=== PATIENT | male | born 1950 | race Caucasian/White ===

== ENCOUNTER 2016-12-08 11:14 | Inpatient (IN) | payer MEDICARE, MEDICAID ==
--- NOTE | 2016-12-08 12:01 | EDPRACDOC ---
- General Information Stated Complaint: WEAKNESS Time Seen by Provider: 12/08/16 11:48 Information Source: Patient Home Medications: Home Medications Clonazepam 0.5 mg PO BID 11/03/15 Duloxetine HCl [Cymbalta] 60 [place] 89911/03/15 Finasteride [Proscar] 5 mg PO 79911/03/15 Lamotrigine 200 mg PO BID 11/03/15 PEG-Electrolytes (Miralax) [Miralax] 17 gm [place] 89911/03/15 Quetiapine Fumarate [Seroquel] 50 mg PO 89911/03/15 Tamsulosin HCl [Flomax] 0.4 mg PO 209911/03/15 Acetaminophen [Tylenol] 650 mg PO Q8H PRN 12/08/16 Calcium Carbonate [Tums] 500 mg PO Q4H PRN 12/08/16 Calcium Carbonate/Vitamin D3 [Calcium 600 + D3 Softgel] 1 each PO 0900 12/08/16 Carbidopa/Levodopa [Carbidopa-Levodopa 25-250 Tab] 1 each PO TID 12/08/16 Divalproex Sodium [Depakote] 375 mg PO .[id number] 12/08/16 Docusate Sodium [Colace] 10 ml PO BID 12/08/16 Famotidine 10 mg PO 209912/08/16 Mirtazapine 7.5 mg PO 209912/08/16 Quetiapine Fumarate [Seroquel] 75 mg PO 209912/08/16 Sennosides [Senna] 2 tabs PO 1700 12/08/16 Allergies/Adverse Reactions: Allergies Allergy/AdvReac Type Severity Reaction Status Date / Time No Known Allergies Allergy Verified 12/08/16 12:10 - History of Present Illness HPI: PT PRESENTS TO ER WITH REPORT OF TACHYCARDIA. HE WAS IN SPU FOR PLATELET TRANSFUSION WHICH HAD NOT BEGUN. HEART RATE WAS IN 150'S WHICH HAS IMPROVED WITH REST. ED Past Medical History - History Reviewed Yes Nurses notes reviewed and agree except as marked - Patient Medical History Neurological History: Reports: Dementia (WITH AGITATION) Cardiac History: Reports: Hypertension Respiratory History: Reports: COPD - Social Medical History Smoking Status: Current status unknown [facility] In: [facility] EDM Review of Systems - Review of Systems ROS Unobtainable: Yes Hx Limited due to age/level of understanding of patient Respiratory: negative: Cough, Shortness of Breath Cardiovascular: negative: Chest Pain Gastrointestinal: negative: Pain - Physical Exam Constitutional: Alert Oriented to: Person, Place Last recorded Vital Signs: Oxygen Pulse Oxygen Saturation O2 Device Oxygen Flow Rate Fraction of Inspired Oxygen ( FIO2) - HEENT Head: negative: Deformity, Laceration Eye Exam: negative: Conjunctival Injection, Pale Conjunctiva Oropharynx: negative: Membranes Dry Nose: negative: Congestion, Discharge Neck: negative: Limited ROM - Respiratory/Cardiovascular Respiratory: Normal - CTA. negative: Accessory Muscle Use, Diminished, Tachypnea Cardiovascular: Tachycardia. negative: Bradycardia, Irregular - GI Auscultation: Normal Palpation: Normal Tenderness: Non tender - Musculoskeletal Extremities: Radial Pulse (PALPABLE) - Integumentary Skin: Warm, Dry - Neurologic Memory Impaired: Short-term, Long-term Motor Function: Normal Mood Description: Anxious, Appropriate Thought: Coherent - Results 12/08/16 12:45 12/08/16 12:45 Decision Time to Discharge: 14:52 - Departure Yes I personally saw and evaluated the patient. Disposition: Admit IP To This Hospital Condition: Stable Final Diagnosis: Thrombocytopenia, Lactic acidosis UTI (urinary tract infection) Qualifiers: Urinary tract infection type: site unspecified Instructions: Urinary Tract Infection in Men (ED), Dysuria Referrals: Vania Sandoval MD [Primary Care Provider] - One Week Prescriptions: No Action Tamsulosin HCl [Flomax] 0.4 mg PO 2100 Lamotrigine 200 mg PO BID Clonazepam 0.5 mg PO BID Quetiapine Fumarate [Seroquel] 50 mg PO 0900 PEG-Electrolytes (Miralax) [Miralax] 17 gm PO 0900 Finasteride [Proscar] 5 mg PO 0800 Duloxetine HCl [Cymbalta] 60 mg PO 0900 Carbidopa/Levodopa [Carbidopa-Levodopa 25-250 Tab] 1 each PO TID Calcium Carbonate [Tums] 500 mg PO Q4H PRN PRN Reason: Heartburn Or Indigestion Acetaminophen [Tylenol] 650 mg PO Q8H PRN PRN Reason: Pain Docusate Sodium [Colace] 10 ml PO BID Divalproex Sodium [Depakote] 375 mg PO .[id number] Sennosides [Senna] 2 tabs PO 1700 Quetiapine Fumarate [Seroquel] 75 mg PO 2100 Mirtazapine 7.5 mg PO 2100 Famotidine 10 mg PO 2100 Calcium Carbonate/Vitamin D3 [Calcium 600 + D3 Softgel] 1 each PO 0900 Decision to Admit Time: 14:50 Decision to admit date: 12/08/16 Decision to admit: from ED
[2016-12-08 12:24] LABS: LEUKOCYTES/URINE 2+ (NEGATIVE); NITRITE/URINE NEG (NEGATIVE); RBC/URINE TNTC (0-2); URINE OCCULT BLOOD 1+ (NEG/TRACE); WBC/URINE TNTC (0-2)
[2016-12-08 12:25] LABS: PARTIAL THROMB. TIME 26.3 SEC (22-35); PT-INR 1.1
--- NOTE | 2016-12-08 12:40 | DIRPT ---
CLINICAL DATA: Sepsis EXAM: PORTABLE CHEST 1 VIEW COMPARISON: None. FINDINGS: Heart size is upper normal, likely accentuated to some degree by the semi-upright portable technique. Study is also somewhat hypoinspiratory with crowding of the perihilar and bibasilar bronchovascular markings. Given the low lung volumes, lungs appear clear. No evidence of pneumonia seen. No pleural effusion seen. Left chest wall pacemaker/AICD in place. Patient is status post left shoulder arthroplasty. Degenerative changes noted at the right shoulder, moderate to severe in degree. Osseous and soft tissue structures about the chest are otherwise unremarkable. IMPRESSION: Hypoinspiratory exam. No evidence of acute cardiopulmonary abnormality seen. Electronically Signed By: Benito White M.D. On: 12/08/2016 12:37
[2016-12-08] MEDS ORDERED: NS 1,000 ML IV ONE (12:49)
[2016-12-08 13:14] LABS: MPV 8.5 fL (7.4-10.4)
[2016-12-08] MEDS ORDERED: CEFTRIAXONE 1 GM in D5W 100 ML IV ONE (13:14)
[2016-12-08 13:25] LABS: BLOOD UREA NITROGEN 23 MG/DL (9-20); CALCIUM 9.3 MG/DL (8.4-10.2); CALCULATED OSMOLALITY 280 MOs/Kg (270-290); CHLORIDE 102 mEq/L (98-107); CPK TOTAL WITH POSSIBLE MB 93 IU/L (55-170); GLUCOSE 81 mg/dL (70-99); SODIUM LEVEL 144 mEq/L (137-146); TOTAL PROTEIN 7.3 G/DL (6.3-8.2)
[2016-12-08 13:46] LABS: SEG NEUTROPHIL 66 % (45-76); TOTAL CELL COUNT 100
--- NOTE | 2016-12-08 15:39 | HISTPHYS ---
- Chief Complaint Tachycardia - History of Present Illness Mr. Caldwell is a 66-year-old correction patient with a history of dementia with psychotic features who was sent to the emergency room from special procedures with tachycardia. He was in special procedures to receive a transfusion for a platelet count of 16 when he was noted to be significantly tachycardic. His heart rate was in the 150s. He was referred to the emergency room for further evaluation and management. Clinically he appears septic with an elevated lactic acid level and a urinary tract infection. Currently he is afebrile appears acutely ill. He will be admitted to the hospital for further evaluation and management. - Medical History Cardiac History: Reports: Hypertension Respiratory History: Reports: COPD GI/ History: Reports: No Significant History Musculoskeletal History: Reports: No Significant History Systemic History: Reports: No Significant History Neurological History: Reports: Dementia (WITH AGITATION) - Medictions/Allergies Allergies No Known Allergies Allergy (Verified 12/08/16 12:10) Current Medication List: Reviewed Home Medications Clonazepam 0.5 mg PO BID 11/03/15 Duloxetine HCl [Cymbalta] 60 mg PO 89911/03/15 Finasteride [Proscar] 5 mg PO 79911/03/15 Lamotrigine 200 mg PO BID 11/03/15 PEG-Electrolytes (Miralax) [Miralax] 17 gm PO 89911/03/15 Quetiapine Fumarate [Seroquel] 50 mg PO 89911/03/15 Tamsulosin HCl [Flomax] 0.4 mg PO 209911/03/15 Acetaminophen [Tylenol] 650 mg PO Q8H PRN 12/08/16 Calcium Carbonate [Tums] 500 mg PO Q4H PRN 12/08/16 Calcium Carbonate/Vitamin D3 [Calcium 600 + D3 Softgel] 1 each PO 0900 12/08/16 Carbidopa/Levodopa [Carbidopa-Levodopa 25-250 Tab] 1 each PO TID 12/08/16 Divalproex Sodium [Depakote] 375 mg PO .[id number] 12/08/16 Docusate Sodium [Colace] 10 ml PO BID 12/08/16 Famotidine 10 mg PO 209912/08/16 Mirtazapine 7.5 mg PO 209912/08/16 Quetiapine Fumarate [Seroquel] 75 mg PO 209912/08/16 Sennosides [Senna] 2 tabs PO 1700 12/08/16 - Family History Reports: Other (Unknown) - Social History Travel Outside of [place] in the Last 3 Months?: No Lives: in [facility] Smoking Status: Current status unknown Social History: Denies: Alcohol Use - Review of Systems Yes Review of systems cannot be obtained due to the patient's medical condition (Dementia and confusion) - Physical Exam Constitutional: Alert, Distress. negative: Well appearing (Chronically ill- appearing) Oriented to: Person Exam: Last Vital Signs Temp 98.4 F 12/08/16 12:06 Pulse 112 12/08/16 13:05 Resp 20 12/08/16 13:05 BP 137/66 12/08/16 13:05 Pulse Ox 94 12/08/16 13:05 Intake & Output 12/07/16 12/08/16 12/08/16 23:59 07:59 15:59 Patient's weight 90.718 kg - HEENT Head: Normal. negative: Deformity, Laceration Eye: Normal. negative: Conjunctival Injection, Pale Conjunctiva Oropharynx: Normal. negative: Membranes Dry Nose: negative: Congestion, Discharge - Respiratory/Cardiovascular Respiratory: Normal - CTA. negative: Accessory Muscle Use, Diminished, Tachypnea Cardiovascular: Tachycardia, Systolic murmur - GI Auscultation: Normal Palpation: Normal Tenderness: Non tender - Musculoskeletal Back: Normal. negative: Abrasion Extremities: Normal, Radial Pulse (PALPABLE). negative: Calf Tenderness, Edema , Pedal Edema - Integumentary Skin: Warm, Dry Lymphatics: Normal. negative: Adenopathy - Neurologic Memory Impaired: Short-term, Long-term Motor Function: Normal Cranial Nerve: Normal Cerebellar: Normal Mood Description: Anxious, Appropriate Thought: Coherent Perception: Normal - Focused CV Perfusion Exam Vital Signs: Last Vital Signs Temp 98.4 F 12/08/16 12:06 Pulse 112 12/08/16 13:05 Resp 20 12/08/16 13:05 BP 137/66 12/08/16 13:05 Pulse Ox 94 12/08/16 13:05 - Lab Results Laboratory Results - last 24 hr 12/08/16 12/08/16 12/08/16 11:55 11:55 11:58 WBC RBC Hgb Hct MCV MCH MCHC RDW Plt Count MPV Neut % (Auto) Lymph % (Auto) [place] % (Auto) Eos % (Auto) Baso % (Auto) Absolute Neuts (auto) Absolute Lymphs (auto) Seg Neuts % (Manual) Band Neutrophils % Lymphocytes % (Manual) Monocytes % (Manual) Absolute Neutrophils Absolute Lymphocytes Platelet Estimate RBC Morphology PT 10.9 INR 1.1 APTT 26.3 Sodium Potassium Chloride Carbon Dioxide Anion Gap BUN Creatinine Estimated GFR (MDRD) Glucose Calculated Osmolality Lactic Acid 3.7 H Calcium Total Bilirubin AST ALT Alkaline Phosphatase Creatine Kinase Troponin I Total Protein Albumin Lipase Urine Color Yellow Urine Clarity Cldy Urine pH 6.0 Ur Specific [place] 1.010 Urine Protein 2+ H Urine Glucose (UA) Neg Urine Ketones Neg Urine Occult Blood 1+ H Urine Nitrite Neg Urine Bilirubin Neg Urine Urobilinogen <2.0 Ur Leukocyte Esterase 2+ H Urine RBC Tntc H Urine WBC Tntc H Urine WBC Clumps Present H Ur Epithelial Cells 4+ Urine Bacteria 4+ H 12/08/16 12/08/16 12:45 12:45 WBC 6.6 RBC 5.45 Hgb 16.3 Hct 48.6 MCV 89 MCH 29.9 MCHC 33.6 RDW 15.2 H Plt Count 89 L MPV 8.5 Neut % (Auto) Cancelled Lymph % (Auto) Cancelled [place] % (Auto) Cancelled Eos % (Auto) Cancelled Baso % (Auto) Cancelled Absolute Neuts (auto) Cancelled Absolute Lymphs (auto) Cancelled Seg Neuts % (Manual) 66 Band Neutrophils % 2 Lymphocytes % (Manual) 24 Monocytes % (Manual) 8 Absolute Neutrophils 4.49 Absolute Lymphocytes 1.58 Platelet Estimate Plt clumps present RBC Morphology Norm PT INR APTT Sodium 144 Potassium 4.3 Chloride 102 Carbon Dioxide 27 Anion Gap 19 H BUN 23 H Creatinine 1.40 H Estimated GFR (MDRD) 51 L Glucose 81 Calculated Osmolality 280 Lactic Acid Calcium 9.3 Total Bilirubin 0.6 AST 27 ALT 18 L Alkaline Phosphatase 77 Creatine Kinase 93 Troponin I 0.02 Total Protein 7.3 Albumin 4.2 Lipase 57 Urine Color Urine Clarity Urine pH Ur Specific [place] Urine Protein Urine Glucose (UA) Urine Ketones Urine Occult Blood Urine Nitrite Urine Bilirubin Urine Urobilinogen Ur Leukocyte Esterase Urine RBC Urine WBC Urine WBC Clumps Ur Epithelial Cells Urine Bacteria - Assessment (1) Sepsis A41.9 - SEPSIS, UNSPECIFIED ORGANISM Acute Present on Admission: Yes Qualifiers: Sepsis type: sepsis due to unspecified organism Qualified Code(s): A41.9 - Sepsis, unspecified organism Tachycardic with urinary tract infection and elevated lactic acid level. Admit to the hospital. IV fluids, IV antibiotics and supportive care. Follow lactic acid level. (2) Dementia F03.90 - UNSPECIFIED DEMENTIA WITHOUT BEHAVIORAL DISTURBANCE Acute Present on Admission: Yes Qualifiers: Dementia type: unspecified type Dementia behavioral disturbance: with behavioral disturbance Qualified Code(s): F03.91 - Unspecified dementia with behavioral disturbance Severe. Continue antipsychotics monitor. (3) UTI (urinary tract infection) N39.0 - URINARY TRACT INFECTION, SITE NOT SPECIFIED Acute Present on Admission: Yes Qualifiers: Urinary tract infection type: site unspecified Hematuria presence: without hematuria Qualified Code(s): N39.0 - Urinary tract infection, site not specified IV Rocephin and monitor. Adjust therapy pending culture results (4) Lactic acidosis E87.2 - ACIDOSIS Acute Present on Admission: Yes IV fluids and monitor. Treat infection. (5) Thrombocytopenia D69.6 - THROMBOCYTOPENIA, UNSPECIFIED Acute Present on Admission: Yes Significantly better at 89,000. Attempting to obtain records. Unclear what caused significant thrombocytopenia. Hold on any transfusion
[2016-12-08] MEDS ORDERED: ZOLPIDEM TARTRATE 5 MG TAB PO PRN (15:46)
[2016-12-08] MEDS ORDERED: Docusate Sodium 100 MG CAP PO PRN (15:46)
[2016-12-08] MEDS ORDERED: ACETAMINOPHEN 650 MG SUPP PR PRN (15:46)
[2016-12-08] MEDS ORDERED: MAGNESIUM HYDROXIDE 30 ML BOTTLE PO PRN (15:46)
[2016-12-08] MEDS ORDERED: GUAIFENESIN 200 MG/10 ML UDC PO PRN (15:46)
[2016-12-08] MEDS ORDERED: ACETAMINOPHEN 325 MG/TAB TABLET PO PRN (15:46)
[2016-12-08] MEDS ORDERED: BENZONATATE 100 MG PERLES PO PRN (15:46)
[2016-12-08] MEDS ORDERED: ONDANSETRON HCL 4 MG/2 ML VIAL IV PRN (15:46)
[2016-12-08] MEDS ORDERED: Albuterol/Ipratropium Neb 3 ML NEB NEB PRN (15:51)
[2016-12-08] MEDS ORDERED: CALCIUM CARBONATE 500 MG TAB PO PRN (15:56)
[2016-12-08] MEDS ORDERED: DIVALPROEX SODIUM 375 MG PO SCH (16:00)
[2016-12-08] MEDS: NS 1,000 ML IV SCH (17:38)
[2016-12-08] MEDS: SENNA CONCENTRATE TAB PO SCH (17:46)
[2016-12-08] MEDS ORDERED: Vaccine Screening Complete SCH (18:00)
[2016-12-08] MEDS ORDERED: ENOXAPARIN 40 MG/0.4 ML PFS SQ SCH (18:00)
[2016-12-08] MEDS: Docusate Sodium 100 MG CAP PO SCH (20:40)
[2016-12-08] MEDS: DIVALPROEX SODIUM 125 MG CAP PO SCH (20:40)
[2016-12-08] MEDS: LAMOTRIGINE 100 MG TAB PO SCH (20:41)
[2016-12-08] MEDS: QUETIAPINE FUMARATE 25 MG TAB PO SCH (20:41)
[2016-12-08] MEDS: MIRTAZAPINE 15 MG TAB PO SCH (20:41)
[2016-12-08] MEDS: TAMSULOSIN HCL 0.4 MG CAP PO SCH (20:41)
[2016-12-08] MEDS: CARBIDOPA LEVODOPA PO SCH (20:42)
[2016-12-08] MEDS: FAMOTIDINE 20 MG TAB PO SCH (20:42)
[2016-12-08] MEDS ORDERED: LAMOTRIGINE 200 MG PO SCH (21:00)
[2016-12-08] MEDS ORDERED: MIRTAZAPINE 7.5 MG PO SCH (21:00)
[2016-12-08] MEDS ORDERED: DOCUSATE SODIUM PO SCH (21:00)
[2016-12-08] MEDS ORDERED: FAMOTIDINE 10 MG PO SCH (21:00)
[2016-12-09] MEDS: NS 1,000 ML IV SCH ×3 (01:47→20:42)
[2016-12-09] MEDS: CARBIDOPA LEVODOPA PO SCH ×3 (04:32→20:59)
[2016-12-09 07:45] LABS: MPV 8.8 fL (7.4-10.4)
[2016-12-09] MEDS ORDERED: FLU VACCINE (Afluria) 0.5 ML DOSE IM ONE (08:00)
[2016-12-09 08:02] LABS: BLOOD UREA NITROGEN 16 MG/DL (9-20); CALCIUM 8.4 MG/DL (8.4-10.2); CALCULATED OSMOLALITY 275 MOs/Kg (270-290); CHLORIDE 108 mEq/L (98-107); GLUCOSE 83 mg/dL (70-99); SODIUM LEVEL 143 mEq/L (137-146)
[2016-12-09] MEDS: FINASTERIDE 5 MG TAB PO SCH (08:21)
[2016-12-09] MEDS: Docusate Sodium 100 MG CAP PO SCH ×2 (08:21→20:57)
[2016-12-09] MEDS: DULOXETINE 60 MG CAPSULE PO SCH (08:22)
[2016-12-09] MEDS: DIVALPROEX SODIUM 125 MG CAP PO SCH ×2 (08:22→20:57)
[2016-12-09] MEDS: PEG-ELECTROLYTE 17 GM PACK PO SCH (08:23)
[2016-12-09] MEDS: QUETIAPINE FUMARATE 25 MG TAB PO SCH ×2 (08:23→20:59)
[2016-12-09] MEDS: LAMOTRIGINE 100 MG TAB PO SCH ×2 (08:23→20:57)
[2016-12-09] MEDS: CALCIUM CARBONATE + VITAMIN D 500 MG TAB PO SCH (08:23)
[2016-12-09] MEDS ORDERED: [UNRECOGNIZED DRUG - OTHER] PO SCH (09:00)
[2016-12-09] MEDS ORDERED: VITAMIN D3 PO SCH (09:00)
[2016-12-09] MEDS ORDERED: CALCIUM CARBONATE PO SCH (09:00)
[2016-12-09] MEDS ORDERED: QUETIAPINE FUMARATE 50 MG PO SCH (09:00)
[2016-12-09 11:09] VITALS: BMI 25.6
--- NOTE | 2016-12-09 12:05 | GENMEDPROG ---
Chief Complaint: Still very lethargic, agitated and confused. Unable to provide much history. Notes Reviewed: Yes: Events from last night noted and discussed with Clinical Staff Current Medication List: Reviewed Currently: Reports: Cough. Denies: Wheezing, FLAHERTY, Nausea and Vomiting, Abdominal Pain - Physical Examination Vital Signs and I&O: Last Vital Signs Temp 99.8 F 12/08/16 20:40 Pulse 106 12/09/16 05:36 Resp 20 12/09/16 05:36 BP 120/80 12/09/16 05:36 Pulse Ox 93 12/09/16 05:36 Oxygen Pulse Oxygen Saturation 93 O2 Device Room Air Oxygen Flow Rate Fraction of Inspired Oxygen ( FIO2) Intake & Output 12/06/16 12/07/16 12/08/16 12/09/16 23:59 23:59 23:59 23:59 Intake Total 2060 1146 Balance 2060 1146 Patient's weight 85.729 kg General: Mild distress. negative: Alert, Oriented x3, Cooperative, Well appearing (Acutely ill-appearing) HEENT: Normal, PERRLA, Anicteric Sclera Neck: Non-tender, Full range of motion, Normal Trachea alignment Lymphatics: Normal. negative: Adenopathy Respiratory: Normal - CTA. negative: Accessory Muscle Use, Diminished, Tachypnea Cardiovascular: Good Pedal Pulses, Good Femoral Pulses. negative: Regular rate and rhythm (Tachycardic) GI: Normal bowel sounds, Soft, Non tender, No hepatospenomegaly, No masses Extremities/Musculoskeletal: Normal pulses. negative: Tenderness, Swelling, Edema Skin: Warm,Dry and Intact, No rashes Neurological: Reflexes 2+, Contractures, Somnolent, Lethargy. negative: Normal speech Psych/Mental Status: Confused Lab/DI/Studies Reviewed: Laboratory Results - last 24 hr 12/08/16 12/08/16 12/08/16 11:55 11:55 11:58 WBC RBC Hgb Hct MCV MCH MCHC RDW Plt Count MPV Neut % (Auto) Lymph % (Auto) [place] % (Auto) Eos % (Auto) Baso % (Auto) Absolute Neuts (auto) Absolute Lymphs (auto) Seg Neuts % (Manual) Band Neutrophils % Lymphocytes % (Manual) Monocytes % (Manual) Absolute Neutrophils Absolute Lymphocytes Platelet Estimate RBC Morphology PT 10.9 INR 1.1 APTT 26.3 Sodium Potassium Chloride Carbon Dioxide Anion Gap BUN Creatinine Estimated GFR (MDRD) Glucose Calculated Osmolality Lactic Acid 3.7 H Calcium Total Bilirubin AST ALT Alkaline Phosphatase Creatine Kinase Troponin I Total Protein Albumin Lipase Urine Color Yellow Urine Clarity Cldy Urine pH 6.0 Ur Specific [place] 1.010 Urine Protein 2+ H Urine Glucose (UA) Neg Urine Ketones Neg Urine Occult Blood 1+ H Urine Nitrite Neg Urine Bilirubin Neg Urine Urobilinogen <2.0 Ur Leukocyte Esterase 2+ H Urine RBC Tntc H Urine WBC Tntc H Urine WBC Clumps Present H Ur Epithelial Cells 4+ Urine Bacteria 4+ H 12/08/16 12/08/16 12/08/16 12:45 12:45 16:17 WBC 6.6 RBC 5.45 Hgb 16.3 Hct 48.6 MCV 89 MCH 29.9 MCHC 33.6 RDW 15.2 H Plt Count 89 L MPV 8.5 Neut % (Auto) Cancelled Lymph % (Auto) Cancelled [place] % (Auto) Cancelled Eos % (Auto) Cancelled Baso % (Auto) Cancelled Absolute Neuts (auto) Cancelled Absolute Lymphs (auto) Cancelled Seg Neuts % (Manual) 66 Band Neutrophils % 2 Lymphocytes % (Manual) 24 Monocytes % (Manual) 8 Absolute Neutrophils 4.49 Absolute Lymphocytes 1.58 Platelet Estimate Plt clumps present RBC Morphology Norm PT INR APTT Sodium 144 Potassium 4.3 Chloride 102 Carbon Dioxide 27 Anion Gap 19 H BUN 23 H Creatinine 1.40 H Estimated GFR (MDRD) 51 L Glucose 81 Calculated Osmolality 280 Lactic Acid Calcium 9.3 Total Bilirubin 0.6 AST 27 ALT 18 L Alkaline Phosphatase 77 Creatine Kinase 93 Troponin I 0.02 0.03 Total Protein 7.3 Albumin 4.2 Lipase 57 Urine Color Urine Clarity Urine pH Ur Specific [place] Urine Protein Urine Glucose (UA) Urine Ketones Urine Occult Blood Urine Nitrite Urine Bilirubin Urine Urobilinogen Ur Leukocyte Esterase Urine RBC Urine WBC Urine WBC Clumps Ur Epithelial Cells Urine Bacteria 12/08/16 12/09/16 12/09/16 16:17 07:20 07:20 WBC 6.2 RBC 4.52 L Hgb 13.5 L D Hct 40.6 L MCV 90 MCH 29.7 MCHC 33.2 RDW 15.0 H Plt Count 75 L MPV 8.8 Neut % (Auto) Lymph % (Auto) [place] % (Auto) Eos % (Auto) Baso % (Auto) Absolute Neuts (auto) Absolute Lymphs (auto) Seg Neuts % (Manual) Band Neutrophils % Lymphocytes % (Manual) Monocytes % (Manual) Absolute Neutrophils Absolute Lymphocytes Platelet Estimate RBC Morphology PT INR APTT Sodium 143 Potassium 4.3 Chloride 108 H Carbon Dioxide 28 Anion Gap 11 BUN 16 Creatinine 1.10 Estimated GFR (MDRD) > 60 Glucose 83 Calculated Osmolality 275 Lactic Acid 3.4 H Calcium 8.4 Total Bilirubin AST ALT Alkaline Phosphatase Creatine Kinase Troponin I Total Protein Albumin Lipase Urine Color Urine Clarity Urine pH Ur Specific [place] Urine Protein Urine Glucose (UA) Urine Ketones Urine Occult Blood Urine Nitrite Urine Bilirubin Urine Urobilinogen Ur Leukocyte Esterase Urine RBC Urine WBC Urine WBC Clumps Ur Epithelial Cells Urine Bacteria - Assessment (1) Sepsis Acute A41.9 - SEPSIS, UNSPECIFIED ORGANISM Qualifiers: Sepsis type: sepsis due to unspecified organism Qualified Code(s): A41.9 - Sepsis, unspecified organism Comment/Plan: Lactic acid remains elevated. Heart rate has improved some. Still altered but unclear baseline. Cultures are pending. Continue IV antibiotics to treat urinary tract infection. (2) UTI (urinary tract infection) Acute N39.0 - URINARY TRACT INFECTION, SITE NOT SPECIFIED Qualifiers: Urinary tract infection type: site unspecified Hematuria presence: without hematuria Qualified Code(s): N39.0 - Urinary tract infection, site not specified Comment/Plan: IV Rocephin and monitor. Adjust therapy pending culture results (3) Dementia Acute F03.90 - UNSPECIFIED DEMENTIA WITHOUT BEHAVIORAL DISTURBANCE Qualifiers: Dementia type: unspecified type Dementia behavioral disturbance: with behavioral disturbance Qualified Code(s): F03.91 - Unspecified dementia with behavioral disturbance Comment/Plan: Severe. Continue antipsychotics monitor. (4) Lactic acidosis Acute E87.2 - ACIDOSIS Comment/Plan: IV fluids and monitor. Treat infection. (5) Thrombocytopenia Acute D69.6 - THROMBOCYTOPENIA, UNSPECIFIED Comment/Plan: Slightly worse today. Unclear baseline. Monitor. Will discontinue Lovenox. Case Care Discussed with: Patient, Resource Management
[2016-12-09] MEDS: CEFTRIAXONE 1 GM in D5W 100 ML IV SCH (14:00)
[2016-12-09] MEDS: SENNA CONCENTRATE TAB PO SCH (17:07)
[2016-12-09] MEDS: FAMOTIDINE 20 MG TAB PO SCH (20:57)
[2016-12-09] MEDS: TAMSULOSIN HCL 0.4 MG CAP PO SCH (20:57)
[2016-12-09] MEDS: MIRTAZAPINE 15 MG TAB PO SCH (20:58)
[2016-12-10] MEDS: NS 1,000 ML IV SCH ×4 (04:51→21:04)
[2016-12-10] MEDS: CARBIDOPA LEVODOPA PO SCH ×3 (05:48→21:03)
[2016-12-10 07:38] LABS: AUTOMATED BASOPHIL 0.2 % (0-2); AUTOMATED EOSINOPHIL 3.5 % (0-5); AUTOMATED LYMPH 42.4 % (17-44); AUTOMATED MONOCYTE 11.1 % (3-10); AUTOMATED NEUTROPHIL 42.8 % (45-76); MPV 7.6 fL (7.4-10.4)
[2016-12-10] MEDS ORDERED: FLU VACCINE (Afluria) 0.5 ML DOSE IM ONE (08:00)
[2016-12-10] MEDS: DIVALPROEX SODIUM 125 MG CAP PO SCH ×2 (08:20→21:03)
[2016-12-10] MEDS: DULOXETINE 60 MG CAPSULE PO SCH (08:20)
[2016-12-10] MEDS: CALCIUM CARBONATE + VITAMIN D 500 MG TAB PO SCH (08:20)
[2016-12-10] MEDS: LAMOTRIGINE 100 MG TAB PO SCH ×2 (08:20→21:02)
[2016-12-10] MEDS: FINASTERIDE 5 MG TAB PO SCH (08:20)
[2016-12-10] MEDS: PEG-ELECTROLYTE 17 GM PACK PO SCH (08:20)
[2016-12-10] MEDS: Docusate Sodium 100 MG CAP PO SCH ×2 (08:20→21:03)
[2016-12-10] MEDS: QUETIAPINE FUMARATE 25 MG TAB PO SCH ×2 (08:20→21:02)
[2016-12-10 08:23] LABS: BLOOD UREA NITROGEN 10 MG/DL (9-20); CALCIUM 7.8 MG/DL (8.4-10.2); CALCULATED OSMOLALITY 266 MOs/Kg (270-290); CHLORIDE 106 mEq/L (98-107); GLUCOSE 74 mg/dL (70-99); SODIUM LEVEL 139 mEq/L (137-146)
--- NOTE | 2016-12-10 12:19 | GENMEDPROG ---
Chief Complaint: Markedly more alert today. Still confused and agitated at times. Clinically looks much better. Notes Reviewed: Yes: Events from last night noted and discussed with Clinical Staff Current Medication List: Reviewed Currently: Reports: Cough. Denies: Wheezing, FLAHERTY, Nausea and Vomiting, Abdominal Pain - Physical Examination Vital Signs and I&O: Last Vital Signs Temp 98.0 F 12/10/16 04:55 Pulse 70 12/10/16 04:55 Resp 19 12/10/16 04:55 BP 120/70 12/10/16 04:55 Pulse Ox 95 12/10/16 04:55 Oxygen Pulse Oxygen Saturation 95 O2 Device Room Air Oxygen Flow Rate Fraction of Inspired Oxygen ( FIO2) Intake & Output 12/07/16 12/08/16 12/09/16 12/10/16 23:59 23:59 23:59 23:59 Intake Total 2060 3614 1300 Balance 2060 3614 1300 Patient's weight 85.729 kg General: Mild distress. negative: Alert, Oriented x3, Cooperative, Well appearing (Acutely ill-appearing) HEENT: Normal, PERRLA, Anicteric Sclera Neck: Non-tender, Full range of motion, Normal Trachea alignment Lymphatics: Normal. negative: Adenopathy Respiratory: Normal - CTA. negative: Accessory Muscle Use, Diminished, Tachypnea Cardiovascular: Good Pedal Pulses, Good Femoral Pulses. negative: Regular rate and rhythm (Tachycardic) GI: Normal bowel sounds, Soft, Non tender, No hepatospenomegaly, No masses Extremities/Musculoskeletal: Normal pulses. negative: Tenderness, Swelling, Edema Skin: Warm,Dry and Intact, No rashes Neurological: Reflexes 2+, Contractures, Somnolent, Lethargy. negative: Normal speech Psych/Mental Status: Confused Lab/DI/Studies Reviewed: Laboratory Results - last 24 hr 12/09/16 12/10/16 12/10/16 21:05 07:00 07:30 WBC RBC Hgb Hct MCV MCH MCHC RDW Plt Count MPV Neut % (Auto) Lymph % (Auto) [place] % (Auto) Eos % (Auto) Baso % (Auto) Absolute Neuts (auto) Absolute Lymphs (auto) Sodium 139 Potassium 4.1 Chloride 106 Carbon Dioxide 28 Anion Gap 9 BUN 10 Creatinine 0.80 Estimated GFR (MDRD) > 60 Glucose 74 Calculated Osmolality 266 L Lactic Acid 1.9 0.9 Calcium 7.8 L 12/10/16 07:30 WBC 3.9 RBC 4.37 L Hgb 13.0 L Hct 38.8 L MCV 89 MCH 29.7 MCHC 33.5 RDW 15.1 H Plt Count 99 L MPV 7.6 Neut % (Auto) 42.8 L Lymph % (Auto) 42.4 [place] % (Auto) 11.1 H Eos % (Auto) 3.5 Baso % (Auto) 0.2 Absolute Neuts (auto) 1.64 L Absolute Lymphs (auto) 1.64 Sodium Potassium Chloride Carbon Dioxide Anion Gap BUN Creatinine Estimated GFR (MDRD) Glucose Calculated Osmolality Lactic Acid Calcium - Assessment (1) Sepsis Acute A41.9 - SEPSIS, UNSPECIFIED ORGANISM Qualifiers: Sepsis type: sepsis due to unspecified organism Qualified Code(s): A41.9 - Sepsis, unspecified organism Comment/Plan: Lactic acid resolved. Urine culture with group B strep. Sensitive to Rocephin. Overall clinically much better today. More alert and interactive though remains confused. (2) UTI (urinary tract infection) Acute N39.0 - URINARY TRACT INFECTION, SITE NOT SPECIFIED Qualifiers: Urinary tract infection type: site unspecified Hematuria presence: without hematuria Qualified Code(s): N39.0 - Urinary tract infection, site not specified Comment/Plan: Urine culture with group b strep. Sensitive to Rocephin. Continue IV antibiotics and supportive care. Clinically much improved (3) Dementia Acute F03.90 - UNSPECIFIED DEMENTIA WITHOUT BEHAVIORAL DISTURBANCE Qualifiers: Dementia type: unspecified type Dementia behavioral disturbance: with behavioral disturbance Qualified Code(s): F03.91 - Unspecified dementia with behavioral disturbance Comment/Plan: Severe. Continue antipsychotics monitor. (4) Lactic acidosis Acute E87.2 - ACIDOSIS Comment/Plan: Resolved (5) Thrombocytopenia Acute D69.6 - THROMBOCYTOPENIA, UNSPECIFIED Comment/Plan: Much better. Initially was at Hospital for possible platelet transfusion was so agitated he was referred to the emergency room and found to have UTI. Platelet count is much better. Discontinued Lovenox. Suspect due to sepsis.
[2016-12-10] MEDS: CEFTRIAXONE 1 GM in D5W 100 ML IV SCH (12:57)
[2016-12-10] MEDS: SENNA CONCENTRATE TAB PO SCH (16:16)
[2016-12-10] MEDS: TAMSULOSIN HCL 0.4 MG CAP PO SCH (21:03)
[2016-12-10] MEDS: MIRTAZAPINE 15 MG TAB PO SCH (21:03)
[2016-12-10] MEDS: FAMOTIDINE 20 MG TAB PO SCH (21:04)
[2016-12-11] MEDS: CARBIDOPA LEVODOPA PO SCH (05:12)
[2016-12-11] MEDS: NS 1,000 ML IV SCH (05:13)
[2016-12-11 07:24] LABS: MPV 7.9 fL (7.4-10.4)
[2016-12-11] MEDS: PEG-ELECTROLYTE 17 GM PACK PO SCH (08:09)
[2016-12-11] MEDS: Docusate Sodium 100 MG CAP PO SCH (08:10)
[2016-12-11] MEDS: LAMOTRIGINE 100 MG TAB PO SCH (08:10)
[2016-12-11] MEDS: DULOXETINE 60 MG CAPSULE PO SCH (08:10)
[2016-12-11] MEDS: FINASTERIDE 5 MG TAB PO SCH (08:10)
[2016-12-11] MEDS: QUETIAPINE FUMARATE 25 MG TAB PO SCH (08:10)
[2016-12-11] MEDS: CALCIUM CARBONATE + VITAMIN D 500 MG TAB PO SCH (08:10)
[2016-12-11] MEDS: DIVALPROEX SODIUM 125 MG CAP PO SCH (08:10)
[2016-12-11 08:29] LABS: BLOOD UREA NITROGEN 7 MG/DL (9-20); CALCIUM 8.3 MG/DL (8.4-10.2); CALCULATED OSMOLALITY 273 MOs/Kg (270-290); CHLORIDE 107 mEq/L (98-107); GLUCOSE 93 mg/dL (70-99); SODIUM LEVEL 143 mEq/L (137-146)
[2016-12-11 08:33] LABS: SEG NEUTROPHIL 38 % (45-76)
--- NOTE | 2016-12-11 12:23 | PCM.DCS92 ---
- Final/Secondary Discharge Diagnosis (1) Dementia Acute F03.90 - UNSPECIFIED DEMENTIA WITHOUT BEHAVIORAL DISTURBANCE Present on Admission: Yes unspecified type with behavioral disturbance F03.91 - Unspecified dementia with behavioral disturbance Comment: Severe. Continue antipsychotics monitor, he was initially somewhat confused and combative, but back to his normal self today.. (2) Lactic acidosis Acute E87.2 - ACIDOSIS Present on Admission: Yes Comment: Resolved (3) Sepsis Acute A41.9 - SEPSIS, UNSPECIFIED ORGANISM Present on Admission: Yes sepsis due to unspecified organism A41.9 - Sepsis, unspecified organism Comment: Lactic acid resolved. Urine culture with group B strep. Sensitive to Rocephin. Overall clinically much better today. More alert and interactive though remains confused. (4) Thrombocytopenia Acute D69.6 - THROMBOCYTOPENIA, UNSPECIFIED Present on Admission: Yes Comment: Much better. Initially was at Hospital for possible platelet transfusion was so agitated he was referred to the emergency room and found to have UTI. Platelet count is much better. Discontinued Lovenox. Suspect due to sepsis. (5) UTI (urinary tract infection) Acute N39.0 - URINARY TRACT INFECTION, SITE NOT SPECIFIED Present on Admission: Yes site unspecified without hematuria N39.0 - Urinary tract infection, site not specified Comment: Urine culture with group b strep. Sensitive to Rocephin. Continue IV antibiotics and supportive care. Clinically much improved Discharge Disposition: [facility] Discharge Condition: Good Cognitive Discharge Status: Unimpaired Fuctional Discharge Status: Walker Assistance Physician Follow up/Referrals: Vania Sandoval MD [Primary Care Provider] - One Week Home Medications / New Prescriptions: New Cephalexin Monohydrate [Keflex] 500 mg PO Q8H 8 Days Probiotic Blend [Delmy Q] 1 tab PO BID 10 Days Continue Tamsulosin HCl [Flomax] 0.4 mg PO 2100 Lamotrigine 200 mg PO BID Clonazepam 0.5 mg PO BID Quetiapine Fumarate [Seroquel] 50 mg PO 0900 PEG-Electrolytes (Miralax) [Miralax] 17 gm PO 0900 Finasteride [Proscar] 5 mg PO 0800 Duloxetine HCl [Cymbalta] 60 mg PO 0900 Carbidopa/Levodopa [Carbidopa-Levodopa 25-250 Tab] 1 each PO TID Calcium Carbonate [Tums] 500 mg PO Q4H PRN PRN Reason: Heartburn Or Indigestion Acetaminophen [Tylenol] 650 mg PO Q8H PRN PRN Reason: Pain Docusate Sodium [Colace] 10 ml PO BID Divalproex Sodium [Depakote] 375 mg PO .[id number] Sennosides [Senna] 2 tabs PO 1700 Quetiapine Fumarate [Seroquel] 75 mg PO 2100 Mirtazapine 7.5 mg PO 2100 Famotidine 10 mg PO 2100 Calcium Carbonate/Vitamin D3 [Calcium 600 + Vit D 400 Softgl] 1 each PO 0900 O2 Device: Room Air Diet at Discharge: As Tolerated, Regular Activity: No Restrictions - DC Summary Notes HPI/Notes: This is a pleasant 66-year-old male who was a resident of [facility], has a history of dementia with psychotic features. He was admitted to the hospital due to appearance of sepsis with tachycardia, elevated lactic acid and found to have urinary tract infection. He is responding well to empiric IV antibiotic therapy, he will be discharged back to [facility] today to complete a course of p.o. antibiotics for his UTI, as well as probiotic. Please see the hospital problems and discharge problems above for details of the hospital course including diagnostics and treatment. The plan of care including medications, prognosis, follow-up including alarm symptoms for which medical care should be sought were reviewed with the patient and any available family members/caretakers. The patient is agreeable to discharge today, and all questions were answered by me to their satisfaction. Hospital Course Note:: Discharge summary on patient named ROSA DENISE admitted to [facility] on 12/08/16 by Freddie Marcelo MD. Date of discharge is []. Total Time: 38 - Physical Exam Vital Signs: Last Vital Signs Temp 98.2 F 12/11/16 04:50 Pulse 69 12/11/16 04:50 Resp 18 12/11/16 04:50 BP 132/52 L 12/11/16 04:50 Pulse Ox 95 12/11/16 04:50 Oxygen Pulse Oxygen Saturation 95 O2 Device Room Air Oxygen Flow Rate Fraction of Inspired Oxygen ( FIO2) Constitutional: No apparent distress, Alert. negative: Well appearing ( Chronically ill-appearing) Oriented to: Person Exam: Resting comfortably in bed this morning, conversant. He is demented and does not seem to be oriented to place or time. - HEENT Head: Normal. negative: Deformity, Laceration Eye: Normal. negative: Conjunctival Injection, Pale Conjunctiva Oropharynx: Normal. negative: Membranes Dry Nose: negative: Congestion, Discharge - Respiratory/Cardiovascular Respiratory: Normal - CTA. negative: Accessory Muscle Use, Diminished, Tachypnea Cardiovascular: Normal (RRR , Normal S1, S2. No murmurs, rubs, or gallops. PMI non-displaced. Carotids: no carotid bruits. No bradycardia or tachycardia. DP pulses 2+ bilaterally.) - GI Auscultation: Normal Palpation: Normal Tenderness: Non tender - Musculoskeletal Back: Normal. negative: Abrasion Extremities: Normal, Radial Pulse (PALPABLE). negative: Calf Tenderness, Edema , Pedal Edema - Integumentary Lymphatics: Normal. negative: Adenopathy - Neurologic Memory Impaired: Short-term, Long-term Cerebellar: Normal Mood Description: Anxious, Appropriate Thought: Coherent Perception: Normal
[2016-12-11 13:42] VITALS: BP 153/92; PULSE 88; TEMP 97.7
[2016-12-13] MEDS ORDERED: DIVALPROEX SODIUM 125 MG CAP PO SCH (09:00)
[2016-12-16] MEDS ORDERED: DIVALPROEX SODIUM 125 MG CAP PO SCH (09:00)
== END 2016-12-11 14:25 | DRG 872 ==
LOC: ED 11:14 → MPS3 15:51
PROVIDERS: ADMIT Hospitalist; ATTEND Internal Medicine
DX: A41.9 Sepsis, unspecified organism (principal); E87.2 Acidosis; F03.91 Unspecified dementia, unspecified severity, with behavioral disturbance; D69.6 Thrombocytopenia, unspecified; F03.90 Unspecified dementia, unspecified severity, without behavioral disturbance, psychotic disturbance, mood disturbance, and anxiety; N39.0 Urinary tract infection, site not specified; B95.1 Streptococcus, group B, as the cause of diseases classified elsewhere; I10 Essential (primary) hypertension; J44.9 Chronic obstructive pulmonary disease, unspecified; Z79.899 Other long term (current) drug therapy
CPT/HCPCS: 36415; 71010; 80048; 80053; 81001; 82550; 83605; 83690; 84484; 85007; 85025; 85027; 85610; 85730; 87040; 87077; 87086; 87186; 90656; 93005; 96365; 96372; 97161; 99284; G0237; J0696; J1650; J3490; J7060